=== PATIENT | female | born 1945 | race Asian ===

== ENCOUNTER → 2017-02-18 | Outpatient (CLI) | payer MEDICARE, OTHER ==
[~2017-02-18] MED LIST: FENOFIBRATE145 MG PO; NORVASC PO
--- NOTE | ~2017-02-18 | MY11 ---
[facility] A Service of [facility] [place] RADIOLOGY TEXT RESULTS PATIENT: ANJEL GUTIERREZ LOCATION: [facility] : 43 UNIT #: [id number] AGE: [address]: Kerrie Gutierrez MD SEX: F ORDER DR: [id number] [facility] [address] [place], [place] [address] [id number] O MR#: [id number] Acc #: [id number] NAME: ANJEL GUTIERREZ : 1945 SEX: F STUDY DATE/TIME: 02/18/2017 9:49 UNIT: [facility] ROOM: STUDY DESCRIPTION: MY Mammogram Screening Dig Dwain Attending Physician: Kerrie Gutierrez M.D. Referring Physician: Kerrie Gutierrez M.D. Ordering Physician: Kerrie Gutierrez M.D. Primary Care Physician: Kerrie Gutierrez M.D. MEDICAL IMAGING REPORT This report is preliminary unless electronic signature is present EXAM Digital screening mammogram, 02/18/2017 HISTORY 71-year-old woman, no risk elevation. Annual screening. COMPARISON 03/20/2009, 05/17/2014, 02/11/2016 FINDINGS Digital imaging of each breast was completed utilizing a two-view examination of each breast in craniocaudal and mediolateral-oblique projections. Review and interpretation of digital mammograms include a second review in conjunction with FDA-approved CAD device. There is a normal parenchymal presentation bilaterally consistent with the patient's age. There are no breast masses imaged and no parenchymal asymmetry is visualized. There are no suspicious microcalcifications and I see no focal architectural disturbance. IMPRESSION Negative screening digital mammogram. One-year followup recommended. Patients over the age of 40 are entered into a reminder system with target due date for the next mammogram. A result letter will also be sent to the patient. BIRADS: 1 Negative Dictated by... Chris Barrett M.D. THIS IS AN ELECTRONICALLY VERIFIED REPORT Chris Barrett M.D. at 02/18/2017 12:14 PM [facility]. [facility] A Service of [facility] [place] RADIOLOGY TEXT RESULTS PATIENT: ANJEL GUTIERREZ LOCATION: [facility] : 43 UNIT #: [id number] AGE: [address]: Kerrie Gutierrez MD SEX: F ORDER DR: KERI/vidhi TD: 02/18/2017 11:34 JOB #: [id number] MEDICAL IMAGING REPORT Page 1 of 1 COPY
== END | disposition home or self-care (01) ==
LOC: CWCC 09:13
DX: Z12.31 Encounter for screening mammogram for malignant neoplasm of breast (principal)
CPT/HCPCS: G0202

== ENCOUNTER → 2017-02-19 | Outpatient (CLI) | payer MEDICARE, OTHER | END | disposition home or self-care (01) | LOC: CSSDAY 08:18 | DX: M81.0 Age-related osteoporosis without current pathological fracture (principal); Z79.899 Other long term (current) drug therapy | CPT/HCPCS: 96372; J0897 ==